=== PATIENT | male | born 1990 | race Caucasian/White ===

== ENCOUNTER 2025-04-17 15:21 | Emergency (ER) | payer BC, SELFPAY ==
[2025-04-17 15:23] VITALS: BP 155/100
--- NOTE | 2025-04-17 17:56 | ED.MUSCINJ ---
HPI-Injury
General
Chief Complaint: Musculo-Skeletal Complaint
Source: patient
Exam Limitations: none
Time Seen by Provider: 04/17/25 17:33
Nursing documentation reviewed up to this point in time: agreed with
History of Present Illness-Injury
Is this injury a work related problem?: No
Is pt an associate of [facility]?: No
Initial Injury comments:
Patient to ED [facility] report of left calf pain x 24 hours. He was seen at and advised to come to ED. Denies fever/chills, recent illness. No prior history of same.
Past History
Past History
ED Past Medical History: HTN
Review of Systems
Review of Systems
Allergies reviewed?: Yes
All Other Systems: ROS reviewed and negative except as documented in HPI and ROS
Constitutional: Reports no symptoms
EENT: Reports no symptoms
Respiratory: Reports no symptoms
Cardiac: Reports no symptoms
ABD/GI: Reports no symptoms
: Reports no symptoms
Musculoskeletal: Reports other (pain to left calf)
Skin: Reports no symptoms
Neurological: Reports no symptoms
Psychiatric: Reports no symptoms
Musculoskeletal Injury Exam
Musculoskeletal Injury Exam
Left Calf:
Pain with Movement?: Moderate
Tender to palpation?: Moderate
Soft tissue swelling?: Mild
External deformity and angulation?: None
Joint effusion?: None
Contusion?: None
Hematoma-local bleeding into tissue?: None
Strain- Sprain- Tear (Connective tissue injury)?: None
Crepitus with movement?: No
Joint instability?: No
Malalignment/deformity?: No
Range of motion: Full
Distal skin color and temperature: normal-warm & good color
Capillary Refill: normal
Normal distal neurovascular exam?: Yes
Peripheral Pulses: posterior tibial (left): 3+, posterior tibial (right): 3+, dorsalis pedis (left): 3+ and dorsalis pedis (right): 3+
Phy Exam
General Physical Exam
General Presentation: well appearing and no apparent distress
General age: appears stated age
General Skin: warm and dry
General Habitus: obese
General Mental: alert
Cardiovascular Exam
Cardiovascular Exam: regular rate/rhythm and no edema
Pulmonary Exam
Pulmonary Exam: lungs clear and no respiratory distress
Musculoskeletal Exam
Musculoskeletal Exam: full ROM and neuro vasc intact
Skin Exam
Skin Exam: normal color, warm/dry, no rash and other (4cm round area on left medial calf with erythema, tenderness. Cord present.)
Psychiatric Exam
Psychiatric Exam: normal mood/affect
Injury Course
Orders/Labs/Results
Orders:
Orders
04/17/25 15:23
US Periph Venous LOWER Ext LT Urgent
Comment:
Reason For Exam: calf pain
*Radiology
Radiology exam reviewed: radiology read reviewed
*Pulse Oximetry
SaO2: 99
Oxygen Mode of Delivery: Room air
Patient hypoxic: no
*Critical Care Note
Total Time (30-74mins, 75-104mins- exclusive of procedures): Not Applicable
Update Note
Update Note:
Patient to ED wtih report of pain and redness to left medial calf. US report reviewed. No evidence of DVT. Acute occlusive superficial thrombosis of varicosities left lower leg noted. Discussed findings with him. Will treat with heat NSAIds,
compression stockings. He is discharged home and will follow up with PCP this week. Given instructions on s/s to return to ED and he is agreeable to plan.
ED Attending Note
-
Portions of this chart may have been created with voice recognition software.� Occasional wrong word or��sound alike� substitutions may have occurred due to the inherent limitations of voice recognition software.
Discharge Plan
Departure
Patient Disposition: Home (Routine Discharge)
Date of Disposition: 04/17/25
Time of Disposition: 17:53
Patient with high blood pressure during this ER visit?: No
Condition: Good
Covid-19: Not Applicable
Discharge Problem:
Superficial thrombophlebitis
Instructions: Ibuprofen, Superficial vein phlebitis and thrombosis
Prescriptions:
No Action
No Current Medications
0
Activity Restrictions/Additional Instructions:
Follow up with your family doctor. Warm compresses to site 15-20 minutes at a time, 4-5 times daily.
Interventions
Interventions:
*Risk Screen - Suicide Last Done: 04/17/25 15:25
*General Assessment Last Done: 04/17/25 15:25
*Neglect/Abuse Screening Last Done: 04/17/25 15:25
*ED- Fall Risk Assessment Last Done: 04/17/25 17:50
*ED COVID-19 Vaccine History Last Done: 04/17/25 15:25
*ED Influenza Vaccine History Last Done: 04/17/25 15:25
*Nursing Disposition Last Done: 04/17/25 18:39
ED-Musculoskeletal Assessment Last Done: 04/17/25 17:50
Discharge Date and Time
Discharge Date/Time: 04/17/25 18:35
Print Language: MICRONESIAN
== END 2025-04-17 18:35 | disposition home or self-care (01) ==
LOC: EMR 15:21
PROVIDERS: EMERGENCY PHYSICIAN Student in an Organized Health Care Education/Training Program
DX: I82.492 Acute embolism and thrombosis of other specified deep vein of left lower extremity (principal); I83.92 Asymptomatic varicose veins of left lower extremity; M79.662 Pain in left lower leg; I10 Essential (primary) hypertension
CPT/HCPCS: 99284; 93971